=== PATIENT | female | born 1980 | race Caucasian/White ===

== ENCOUNTER 2018-06-10 16:23 | Emergency (ER) | payer OTHER ==
[~2018-06-10] VITALS: Ht 172.7 cm; Wt 104.3 kg
[~2018-06-10 16:23] MED LIST: CYCLOBENZAPRINE10 MG PO; IBUPROFEN200 MG PO; IBUPROFEN800 MG PO; NORCO 5-325 TA1 EACH PO; PERCOCET 5-3251 EACH PO; PREDNISONE20 MG PO; ROBAXIN-750750 MG PO; VALIUM5 MG PO
[2018-06-10] MEDS ORDERED: CYCLOBENZAPRINE10 MG PO (21:20)
[2018-06-10] MEDS ORDERED: DICLOFENAC SODI75 MG PO (21:20)
== END 2018-06-10 21:43 | disposition home or self-care (01) ==
LOC: ED 16:23
DX: M54.5 Low back pain (principal); Z87.891 Personal history of nicotine dependence; Z91.013 Allergy to seafood; Z88.5 Allergy status to narcotic agent
CPT/HCPCS: 99283

== ENCOUNTER 2020-08-18 06:25 | Day surgery (SDC) | payer OTHER ==
[~2020-08-18] VITALS: Ht 170.2 cm; Wt 91.8 kg
[~2020-08-18 06:25] MED LIST changes: +DICLOFENAC SODI75 MG PO; +PROBIOTIC1 EAC1 PO
--- NOTE | 2020-08-18 08:21 | NUR ---
08/18/20 0821 Reginald,Dee 0876 PT ARRIVED TO PACU WITH ORAL AIRWAY AND 6L VIA MASK IN PLACE. JAW THURST NEEDED TO MAINTAIN AIRWAY. VSS. 0817 JAW THURST NO LONGER NEEDED, PT REAMINS NONAROUSABLE WITH ORAL AIRWAY IN PLACE. RESP EVEN AND UNLABORED. DRESSING CDI.
[2020-08-18] MEDS ORDERED: MOTRIN IB200 MG PO (08:28)
[2020-08-18] MEDS ORDERED: TYLENOL EXTRA500 MG PO (08:30)
[2020-08-18] MEDS ORDERED: OXYCODONE HCL5 MG PO (08:31)
--- NOTE | 2020-08-18 08:45 | NUR ---
PT ARRIVED FROM PACU. REPORT RECIEVED FROM KIERA Brown RN. PT PROVIDED WITH ICE WATER AND CRACKERS. PT SLEEPING IN LOCKED AND LOWERED BED. SIDE RAILS UP, CALL LIGHT WITHIN REACH. SPOUSE AT THE BEDSIDE. NO FURTHER REQUESTS AT THIS TIME.
--- NOTE | 2020-08-18 09:34 | NUR ---
PT UP TO USE THE RESTROOM WITH STANDBY ASSIST. VOIDED WITH NO COMPLICATIONS. PT ICE WATER REFRESHED. PT NOW RESTING IN LOCKED AND LOWERED BED. CALL LIGHT WITHIN REACH. SPOUSE AT THE BEDSIDE NO FURTHER REQUESTS AT THIS TIME.
--- NOTE | 2020-08-18 09:34 | NUR ---
PT ALERT, ORIENTED AND SUPPORTED BY SPOUSE JOSE. PT SEEMS PREPARED, ALL QUESTIONS ASKED ANSWERED. PT REQUESTED PRAYER WILL FOLLOW
--- NOTE | 2020-08-18 10:40 | NUR ---
DISCHARGE INSTRUCTIONS DISCUSSED WITH PT AND SPOUSE. PT CHANGED INTO NORMAL CLOTHES WITH NO COMPLICATIONS. PT LEFT THE UNIT VIA WHEELCHAIR. PT TRANSFERRED INDEPENDENTLY FROM WHEELCHAIR TO VEHICLE WITH NO COMPLICATIONS. SPOUSE PROVIDED TRANSPORTATION.
--- NOTE | 2020-08-20 07:58 | OR ---
[facility] [address] [place], [place] [address] Signed DATE OF OPERATION: 08/18/2020 SURGEON: Kiana Gordon MD PREOPERATIVE DIAGNOSIS: Left subareolar 3 cm mass biopsy showing PASH (pseudoangiomatous stromal hyperplasia) histology. POSTOPERATIVE DIAGNOSIS: Left subareolar 3 cm mass biopsy showing PASH (pseudoangiomatous stromal hyperplasia) histology. PROCEDURE: Left subareolar breast mass excision greater than 3 cm. ANESTHESIA: General LMA; Isaac Chloe, LCAC RADAR OPERATOR/NAVIGATOR and local 5 mL of 0.25% Marcaine with epinephrine. INDICATION: This 40-year-old white woman is a patient of Dr. Kiana Case, Samy Nguyen, as well as Dr. Heidi Neal and was seen for an abnormal mammogram showing a left retroareolar mass about 30 mm in size. It was considered complex with internal vascularity. She was referred by Dr. Nguyen to Dr. Sanders, radiologist for further consideration of this. A biopsy was performed of the mass, which showed a PASH lesion (pseudoangiomatous stromal hyperplasia). The patient notes lesion to be somewhat painful from time to time and without associated nipple discharge or skin dimpling. Of note, the patient was seen by me in 2007, undergoing a right needle localized excisional biopsy showing mammary dysplasia and atypia. She has no family history of breast cancer. She is admitted at this time to undergo excision of the palpable mass. She understands the risks of bleeding, infection, cosmetic deformity, and other unforeseen complications. Understanding this, she wished to proceed. FINDINGS: The mass was firm, but not rock hard. Excision was undertaken through a circumareolar incision in the lateral aspect on the left. A clinically negative margin was maintained. The specimen once excised was oriented with a short stitch superior and long stitch lateral and a double stitch in the deep portions. DESCRIPTION OF PROCEDURE: Electronically Signed By: KIANA GORDON MD 08/20/20 [facility]8 PATIENT NAME: DESIRAE ELIZABETH OPERATIVE REPORT DATE OF : 76 REPORT #: [id number] PHYSICIAN: KIANA GORDON MD PCP: JORDYN CASE MD REPORT IS CONFIDENTIAL AND NOT TO BE RELEASED WITHOUT AUTHORIZATION [facility] [address] [place], [place] [address] Signed The patient was brought to the operating room and given a general anesthetic by LMA technique. Preoperative antibiotic Ancef was given. Sequential compression device stockings used and heparin subcutaneously administered. The left breast was prepared with a chlorhexidine solution and draped sterilely. The areolar margin was marked with a marker and palpable mass beneath the areola to the left was well demonstrated. A few mL of 0.25% Marcaine with epinephrine was injected along the areolar margin and a curvilinear incision was made there using a #15 blade. Dissection was carried through the dermis with electrocautery. Using blunt dissection and palpation, the mass could easily be identified from surrounding tissue. An Allis clamp was applied to the parenchyma near it. Using electrocautery, wide excision undertaken completely excising the mass. The lesion was marked with silk sutures for orientation. Hemostasis was assured with electrocautery. Irrigation was undertaken and parenchyma was then reapproximated with interrupted 2-0 Vicryl to fill the space. The deep dermal layer was reapproximated with interrupted 2-0 Vicryl and the skin was closed with running subcuticular 3-0 Vicryl. Steri-Strips were applied as was an adhesive dressing. The patient was extubated and transported to the recovery room in good condition, having suffered no complications. Sponge, needle, and instrument counts reported as correct x3. MD NAVNEET Soriano/MADELAINEL /[id number] cc: MD Heidi Suero MD Cynthia Sue Holmes, MD Jonathan Hitzman, MD Copies: SAMY NGUYEN MD, PATRICIA J MD Electronically Signed By: KIANA GORDON MD 08/20/20 0758 PATIENT NAME: DESIRAE ELIZABETH OPERATIVE REPORT DATE OF : 76 REPORT #: [id number] PHYSICIAN: KIANA GORDON MD PCP: JORDYN CASE MD REPORT IS CONFIDENTIAL AND NOT TO BE RELEASED WITHOUT AUTHORIZATION [address] [place] [address] Signed ESTHER SANDERS MD, JONATHAN MD ~ Electronically Signed By: KIANA GORDON MD 08/20/20 0758 PATIENT NAME: DESIRAE ELIZABETH OPERATIVE REPORT DATE OF : 76 REPORT #: [id number] PHYSICIAN: KIANA GORDON MD PCP: JORDYN CSAE MD REPORT IS CONFIDENTIAL AND NOT TO BE RELEASED WITHOUT AUTHORIZATION
--- NOTE | 2020-08-21 16:04 | PATH ---
[facility] [address] [place], [place] [address] Signed SPECIMEN(S): A LEFT BREAST SPECIMEN SOURCE: A. LEFT BREAST CLINICAL HISTORY: Left breast mass, short stitch superior, long lateral, double deep. FINAL PATHOLOGIC DIAGNOSIS: Breast, left, lumpectomy: - Fibroadenoma (2.9 cm in greatest dimension). - Fibrocystic changes including stromal fibrosis, usual ductal hyperplasia, and cyst formation. - Duct ectasia. - Biopsy site changes. - Negative for atypia or carcinoma. COMMENT: Sections demonstrate a fibrous nodular mass comprised of dense stroma with benign breast epithelial elements with fibrocystic change and areas of slit-like stromal clefts lined by bland spindled to ovoid cells. Immunohistochemical stains (with appropriately staining controls) were performed. The cells lining the slit-like stromal spaces are positive for CD34 and CD31, but negative for smooth muscle myosin heavy chain (SMMHC); this immunohistochemical profile argues against pseudoangiomatous stromal hyperplasia (PASH) and supports vascular origin. Overall, the findings are compatible with a fibroadenoma. As part of [facility] [employer]' Quality Improvement Program, this case was reviewed by another member of our pathology staff. NAL:cml:C2NR MICROSCOPIC EXAMINATION: Histologic sections of all submitted blocks are examined by light microscopy. These findings, together with the gross examination, support the pathologic diagnosis. GROSS DESCRIPTION: The specimen, labeled "Analisa Dietrich Lacie," and designated on the requisition "left breast," is received in formalin and consists of a 20 gram oriented portion of yellow-cintron fibroadipose tissue that PATIENT NAME: GAVI ELIZABETH PATHOLOGY DATE OF : 76 REPORT #: [id number] PHYSICIAN: RAUDEL PATHOLOGY PCP: JORDYN CHUA MD REPORT IS CONFIDENTIAL AND NOT TO BE RELEASED WITHOUT AUTHORIZATION [facility] [address] [place], [place] [address] Signed is 4.4 x 4.2 x 2.7 cm. A short suture identifies the superior margin, a long suture identifies the lateral margin, and a double suture identifies the deep/posterior margin. The specimen is inked as follows: superior - blue; inferior - green; medial - red; lateral - orange; anterior - yellow; and posterior - black. The specimen is serially sectioned from medial to lateral into nine slices revealing a 2.9 x 2.4 x 2.1 cm pink, well-circumscribed nodule. The nodule is present in slices 2-7, is 0.1 cm from the anterior soft tissue margin, 0.3 cm from the posterior soft tissue margin, 0.8 cm from the superior soft tissue margin, 0.5 cm from the inferior soft tissue margin, 0.6 cm from the medial soft tissue margin, and 1.4 cm from the lateral soft tissue margin. Approximately 90% of the remaining specimen is a yellow-cintron greasy adipose tissue and 10% is a white-cintron rubbery fibrous tissue. Smocker sections are submitted in six cassettes. Cassette summary: (A1-A2) slice three (A3-A4) slice four (A5) slice one, medial soft tissue resection margin, perpendicular (A6) slice nine, lateral soft tissue resection margin, perpendicular. Cold ischemia time: Insufficient data to calculate. Approximate Formalin time: 6-28 hours. FB (under the direct supervision of a pathologist) The Gross Description was prepared using a voice recognition system. The report was reviewed for accuracy; however, sound-alike word errors, addition and/or deletions may occur. If there is any question about this report, please contact Client Services. PERFORMING LABORATORY: The technical component was performed by [facility] [address] (Community Development Coordinator: Carmelita Meyers MD; CLIA# [id number]). Professional interpretation was performed by [facility], [address] [place], [place] [address] (CLIA# [id number]). Diagnostician: Daysi Teran MD Pathologist Electronically Signed 08/21/2020 Copies: PATIENT NAME: GAVI ELIZABETH PATHOLOGY DATE OF : 76 REPORT #: [id number] PHYSICIAN: RAUDEL PATHOLOGY PCP: JORDYN CHUA MD REPORT IS CONFIDENTIAL AND NOT TO BE RELEASED WITHOUT AUTHORIZATION [facility] [address] [facility] [place], [place] [address] Signed ~ PATIENT NAME: GAVI ELIZABETH PATHOLOGY DATE OF : [birth year] REPORT #: [id number] PHYSICIAN: RAUDEL BONNER PCP: JORDYN CHUA MD REPORT IS CONFIDENTIAL AND NOT TO BE RELEASED WITHOUT AUTHORIZATION
== END 2020-08-18 10:35 | disposition home or self-care (01) ==
LOC: DS 06:25 → OPS 06:25 → DS 06:45 → OPS 10:35
PROVIDERS: ATTEND Surgery
PROC: 0HBU0ZZ Excision of Left Breast, Open Approach (ICD-10-PCS; principal; 2020-08-18 06:45)
DX: N60.32 Fibrosclerosis of left breast (principal); N62 Hypertrophy of breast; N60.42 Mammary duct ectasia of left breast; N60.02 Solitary cyst of left breast; Z88.5 Allergy status to narcotic agent; Z98.890 Other specified postprocedural states
CPT/HCPCS: 00404; J0690; J1100; J1644; J1885; J2001; J2405; J2704; J3010; J7121

== ENCOUNTER 2024-02-21 06:45 | Day surgery (SDC) | payer OTHER ==
[2024-02-19 14:17] VITALS: BP 123/75
[~2024-02-21] VITALS: Ht 170.2 cm; Wt 85.5 kg
[~2024-02-21 06:45] MED LIST changes: +AMBIEN CR12.5 MG PO; +DEXAMETHASONE SOD PHOS 4 MG/ML VIAL ONE; +FAMOTIDINE 20 MG/ 2 ML VIAL ONE; +GABAPENTIN600 MG PO; +HYDROCODON-ACE1 EA11 PO; +KETOROLAC TROMETHAMINE 30 MG/ML VIAL ONE; +LACTATED RINGER'S 1,000 ML IV ONE; +LACTATED RINGER'S 1,000 ML IV SCH; +LIDOCAINE HCL 4% 5 ML AMP ONE; +METOCLOPRAMIDE HCL 10 MG/2 ML SDV ONE; +MIDAZOLAM HCL 2 MG/2 ML VIAL ONE; +MORPHINE SULFAT15 M1 PO; +MOTRIN IB200 MG PO; +OXYCODONE HCL5 MG PO; +RELISTOR150 MG PO; +ROCURONIUM BROMIDE 50 MG/5 ML SYR ONE; +SUCCINYLCHOLINE IN 0.9% NACL 200 MG/10 ML SYRINGE ONE; +SUGAMMADEX SODIUM 200 MG/2 ML ML ONE; +TYLENOL EXTRA500 MG PO; +fentaNYL citrate 100 MCG/2 ML VIAL ONE; +ondansetron HCL 4 MG/2 ML VIAL ONE; +propofoL 200 MG/20 ML VIAL ONE
[2024-02-21] MEDS ORDERED: IBLOOD GLUCOSE TEST STRIP 1 EA TEST VI PRN ×2 (07:00→07:30)
[2024-02-21] MEDS ORDERED: LIDOCAINE HCL 1% 5 ML SDV INJ ONE (07:00)
[2024-02-21 07:04] VITALS: BP 117/75
[2024-02-21] MEDS ORDERED: droPERidol 5 MG/2 ML VIAL IV PRN (07:30)
[2024-02-21] MEDS ORDERED: fentaNYL citrate 50 MCG/ML SDV IV PRN (07:30)
[2024-02-21] MEDS ORDERED: MEPERIDINE HCL 25 MG/1 ML VIAL IV PRN (07:30)
[2024-02-21] MEDS ORDERED: NALOXONE HCL 0.4 MG SYR IV PRN ×2 (07:30→09:00)
[2024-02-21] MEDS ORDERED: ondansetron HCL 4 MG/2 ML VIAL IV PRN ×2 (07:30→09:00)
[2024-02-21] MEDS ORDERED: PROCHLORPERAZINE EDISYLATE 10 MG/2 ML VIAL IV PRN ×2 (07:30→09:00)
[2024-02-21] MEDS ORDERED: METOCLOPRAMIDE HCL 10 MG/2 ML SDV IV PRN (07:30)
--- NOTE | 2024-02-21 08:12 | NUR ---
on admit reports back pain always at level 5.
[2024-02-21] MEDS ORDERED: dexmedeTOMIDine HCl 200 MCG/2 ML VIAL ONE (08:24)
[2024-02-21] MEDS ORDERED: droPERidol 5 MG/2 ML VIAL ONE (08:24)
[2024-02-21] MEDS ORDERED: FAMOTIDINE 20 MG/ 2 ML VIAL IV PRN (09:00)
[2024-02-21] MEDS ORDERED: MORPHINE SULFATE 10 MG/ML VIAL IV PRN (09:00)
[2024-02-21] MEDS ORDERED: MAGNESIUM HYDROXIDE/AL HYDROX 30 ML CUP PO PRN (09:00)
[2024-02-21] MEDS ORDERED: SIMETHICONE 125 MG TABLET CHEWABLE PO SCH (09:00)
[2024-02-21] MEDS ORDERED: SIMETHICONE 125 MG TABLET CHEWABLE PO PRN (09:00)
[2024-02-21] MEDS ORDERED: HYDROCODONE/ACETA 5/325 TAB PO PRN (09:00)
--- NOTE | 2024-02-21 09:09 | NUR ---
02/21/24 0909 Megha Malcolm 0901-PATIENT ARRIVED TO PACU ON 6L MASK NONAROUSABLE ORAL AIRWAY IN PLACE RN DOING JAW THRUST TO MAINTAIN OPEN AIRWAY. PATIENT BREATHING SHALLOW 3 LAP SITES TO ABDOMEN STERI STRIPS AND BANDAID INTACT. AURE PAD CDI. SINUS RHYTHM HR 70'S. IVF INFUSING 0903-PATIENT MAINTAINING AIRWAY WITH ORAL AIRWAY IN PLACE. 6L MASK RR EVEN 100%
[2024-02-21 09:48] VITALS: BP 115/71
--- NOTE | 2024-02-21 09:49 | NUR ---
NOT HERE. CALL LIGHT IN REACH. RAILS UP.
[2024-02-21 10:33] VITALS: BP 105/66
--- NOTE | 2024-02-21 11:13 | NUR ---
AMB IN HALLWAY. TOLERATING WELL. VOIDS 250 LIGHT RED URINE AURE PAD CHANGED.LIGHT RED DRAINAGE. WANTS TO GET DRESSED. HELPING.
--- NOTE | 2024-02-23 16:00 | OR ---
[facility] [address] [place], [place] [address] Signed DATE OF OPERATION: 02/21/2024 SURGEON: Tierney Baca DO PREOPERATIVE DIAGNOSES: 1. Risk for ovarian cancer. 2. IUD removal and reinsertion. 3. History of spinal fusion with chronic pain. POSTOPERATIVE DIAGNOSES: 1. Risk for ovarian cancer. 2. IUD removal and reinsertion. 3. History of spinal fusion with chronic pain. PROCEDURES PERFORMED: 1. Laparoscopic bilateral salpingectomy. 2. IUD removal and reinsertion. ANESTHESIA: General. ESTIMATED BLOOD LOSS: 5 mL. SPECIMENS: Bilateral fallopian tubes. IMPLANTS: Mirena IUD. FINDINGS: Normal external genitalia with normal clitoris, urethral meatus, bilateral Arriba's, and Bartholin's glands. Normal vagina and cervix. Normal liver, stomach, and status post cholecystectomy. Normal uterus, tubes, and ovaries. Hemostasis following salpingectomy. IUD was removed and reinserted without difficulty with uterine length noted to be 7 cm. The IUD strings trimmed to 4 cm. COMPLICATIONS: None. Electronically Signed By: TIERNEY BACA DO (JD) 02/23/24 1600 PATIENT NAME: DESIRAE RICE OPERATIVE REPORT DATE OF : [birth year] REPORT #: [id number] PHYSICIAN: TIERNEY BACA DO (JD) PCP: NELI SUTTON [employer] REPORT IS CONFIDENTIAL AND NOT TO BE RELEASED WITHOUT AUTHORIZATION [facility] [address] [place], [place] [address] Signed INDICATIONS: Ms. Rice is a very pleasant 43-year-old female, who presents for bilateral salpingectomy. She has had a Mirena IUD for cycle control and contraception in the past. The patient with a history of spinal fusion and chronic pain. Proposed procedures were reviewed in detail including risks, benefits, and alternatives. Ethics committee approval was requested and received. DESCRIPTION OF PROCEDURE: The patient was taken to the OR where a time-out was performed to confirm correct patient and correct procedure. General anesthesia was adequately established. The patient was prepped and draped in the dorsal lithotomy position with feet in Yellofin stirrups. ICPs were on and running and no preoperative antibiotics or heparin was indicated. A Harrington catheter was inserted. Weighted speculum was placed in the vagina and the anterior lip of the cervix was grasped with an Allis clamp. IUD strings were noted, grasped with Omer clamp and IUD was removed without difficulty. Uterine sound was used and uterine depth was noted to be 7 cm. A Mirena IUD was then inserted per accreditation manager's instructions with gentle insertion to the fundus and to point of IUD. The IUD strings were cut to 4 cm. A uterine manipulator was then placed. The surgeon's gloves were changed and attention was turned to the abdomen. The base of the umbilicus was infiltrated with 0.25% Marcaine with epinephrine. A 5 mm stab incision was made using an 11 blade scalpel. A 5 mm operative port was then placed under direct visualization without complication. The opening pressures were noted. A 5 mm assist ports were placed in the left lower and right lower quadrants under direct visualization without complication. Survey of the abdomen and pelvis was performed demonstrating normal liver and stomach and status post cholecystectomy. Normal uterus, tubes, and ovaries were appreciated in the pelvis and no other pelvic pathology was identified. The left fallopian tube was grasped at the fimbriated end, elevated and dissected along the mesosalpinx using LigaSure device with excellent hemostasis appreciated. It was amputated at the cornu and delivered through the laparoscopic port and sent to pathology for further evaluation. The process was repeated on the right without difficulty with complete salpingectomy performed. Hemostasis was noted at the end of the procedure. Pneumoperitoneum was reduced. Trocars were removed and trocar sites were repaired using 4-0 Vicryl Rapide and subcuticular stitch with excellent hemostasis and cosmesis. The Harrington catheter, the Allis clamp and Hulka uterine manipulator were removed. The patient was taken to PACU in good and stable condition. Sponge, needle, and instrument counts were correct x2 at the end of the procedure. Tierney Baca DO Electronically Signed By: TIERNEY BACA DO (JD) 02/23/24 [facility] PATIENT NAME: DESIRAE RICE OPERATIVE REPORT DATE OF : [birth year] REPORT #: [id number] PHYSICIAN: TIERNEY BACA DO (JD) PCP: NELI SUTTON REPORT IS CONFIDENTIAL AND NOT TO BE RELEASED WITHOUT AUTHORIZATION [facility] [address] [place] [address], [place] [address] Signed JDW/MODL /[id number] Copies: ~ Electronically Signed By: TIERNEY BACA DO (JD) 02/23/24 1600 PATIENT NAME: DESIRAE RICE OPERATIVE REPORT DATE OF : [birth year] REPORT #: [id number] PHYSICIAN: TIERNEY BACA DO (JD) PCP: NELI SUTTON REPORT IS CONFIDENTIAL AND NOT TO BE RELEASED WITHOUT AUTHORIZATION
--- NOTE | 2024-02-27 13:51 | PATH ---
[facility] [address] [place], [place] [address] Signed SPECIMEN(S): A FALLOPIAN TUBES, BILATERAL SPECIMEN SOURCE: A. FALLOPIAN TUBES, BILATERAL CLINICAL HISTORY: Prophylactic for risk factor related to malignant neoplasm of ovary. FINAL PATHOLOGIC DIAGNOSIS: Fallopian tubes, bilateral, salpingectomy: - Fimbriated fallopian tube segments (two) with no significant pathologic changes BRP MICROSCOPIC EXAMINATION: Histologic sections of all submitted blocks are examined by light microscopy. These findings, together with the gross examination, support the pathologic diagnosis. GROSS DESCRIPTION: The specimen, labeled and designated "Regla Rice, " and designated on the requisition "bilateral fallopian tubes," is received in formalin and consists of two undesignated fallopian tubes that measure 5.8 x 1.0 cm and 6.1 x 0.9 cm. The serosal surfaces are violaceous and smooth with delicate fimbriae. One tube is arbitrarily inked. The specimen is entirely submitted in four cassettes. Cassette Summary: (A1-A2) first fallopian tube (A3-A4) second fallopian tube FB (under the direct supervision of a pathologist) The Gross Description was prepared using a voice recognition system. The report was reviewed for accuracy; however, sound-alike word errors, addition and/or deletions may occur. If there is any question about this report, please contact Client Services. ADDITIONAL NOTES: Immunohistochemical and/or in situ hybridization studies if performed in this case included appropriate positive controls that reacted as expected. This test was developed and its performance characteristics determined by [facility]. It has not been cleared or approved by the U.S. Food and Drug Administration. The FDA has determined that PATIENT NAME: DESIRAE RICE PATHOLOGY DATE OF : [birth year] REPORT #: [id number] PHYSICIAN: RAUDEL BONNER PCP: NELI SUTTON REPORT IS CONFIDENTIAL AND NOT TO BE RELEASED WITHOUT AUTHORIZATION [facility] [address] [place], [place] [address] Signed such clearance or approval is not necessary. This test is used for clinical purposes. It should not be regarded as investigational or for research. [facility] is certified under the Clinical Laboratory Improvement Amendments of 1988 (CLIA) as qualified to perform high complexity clinical laboratory testing. PERFORMING LABORATORY: Technical component was performed by [facility], [address] [place] [id number] (CLIA# [id number]). Professional interpretation was performed by [facility] - [address] [id number] Diagnostician: Hong Samson MD Pathologist Electronically Signed 02/27/2024 Copies: ~ PATIENT NAME: DESIRAE RICE PATHOLOGY DATE OF : [birth year] REPORT #: [id number] PHYSICIAN: RAUDEL PATHOLOGY PCP: NELI SUTTON REPORT IS CONFIDENTIAL AND NOT TO BE RELEASED WITHOUT AUTHORIZATION
== END 2024-02-21 11:10 | disposition home or self-care (01) ==
LOC: DS 06:45 → OPS 06:45 → DS 07:30 → OPS 08:45 → DS 09:15 → OPS 11:10
PROVIDERS: ATTEND Obstetrics & Gynecology
PROC: 0UB74ZZ Excision of Bilateral Fallopian Tubes, Percutaneous Endoscopic Approach (ICD-10-PCS; principal; 2024-02-21 08:45)
PROC: 0UPD0HZ Removal of Contraceptive Device from Uterus and Cervix, Open Approach (ICD-10-PCS; 2024-02-21 08:45)
DX: Z40.02 Encounter for prophylactic removal of ovary(s) (principal); Z30.432 Encounter for removal of intrauterine contraceptive device; N83.8 Other noninflammatory disorders of ovary, fallopian tube and broad ligament; G89.29 Other chronic pain; M54.9 Dorsalgia, unspecified; Z15.02 Genetic susceptibility to malignant neoplasm of ovary
CPT/HCPCS: 00840; J0330; J1100; J1790; J1885; J2250; J2405; J2704; J2765; J3010; J3490; J7121